=== PATIENT | female | born 1970 | race Caucasian/White ===

== ENCOUNTER → 2023-08-31 17:21 | Outpatient (REF) | payer BC, SELFPAY | LOC: WDC 17:21 | PROVIDERS: ATTENDING PHYSICIAN Family Medicine | DX: Z12.31 Encounter for screening mammogram for malignant neoplasm of breast (principal) | CPT/HCPCS: 77063; 77067 ==

== ENCOUNTER 2023-12-01 06:25 | Day surgery (SDC) | payer BC, SELFPAY ==
[2023-12-01 09:16] VITALS: BMI 44.0
[2023-12-01 09:18] VITALS: BMI 44.0
[2023-12-01 09:19] VITALS: BP 121/88
[2023-12-01 11:15] VITALS: BP 124/81
[2023-12-01 11:30] VITALS: BP 121/83
[2023-12-01 11:45] VITALS: BP 120/90
[2023-12-01 12:00] VITALS: BP 123/83
== END 2023-12-01 12:15 | disposition home or self-care (01) ==
LOC: GI 06:25
PROVIDERS: ATTENDING PHYSICIAN Internal Medicine
DX: D12.0 Benign neoplasm of cecum (principal); K57.30 Diverticulosis of large intestine without perforation or abscess without bleeding; K62.89 Other specified diseases of anus and rectum; N81.6 Rectocele; K64.4 Residual hemorrhoidal skin tags; R19.7 Diarrhea, unspecified; R15.2 Fecal urgency; K44.9 Diaphragmatic hernia without obstruction or gangrene; K31.7 Polyp of stomach and duodenum; K31.89 Other diseases of stomach and duodenum; R13.10 Dysphagia, unspecified
CPT/HCPCS: 45385; 45380; 43239; 88305; 88342

== ENCOUNTER → 2024-09-22 10:25 | Outpatient (REF) | payer BC, SELFPAY | LOC: WDC 10:25 | PROVIDERS: ATTENDING PHYSICIAN Family Medicine | DX: Z78.0 Asymptomatic menopausal state (principal); Z12.31 Encounter for screening mammogram for malignant neoplasm of breast | CPT/HCPCS: 77063; 77067; 77080 ==

== ENCOUNTER 2024-11-29 18:32 | Emergency (ER) | payer SELFPAY ==
[2024-11-29 18:43] VITALS: BP 132/92
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
[2024-11-29] MEDS: MOTRIN 600 MG PO (21:20)
[2024-11-29] MEDS: VALIUM INJECTION 5 MG IM (21:21)
== END 2024-11-29 22:46 | disposition home or self-care (01) ==
LOC: EMR 18:32
PROVIDERS: EMERGENCY PHYSICIAN Emergency Medicine; FAMILY PHYSICIAN Family Medicine
DX: S16.1XXA Strain of muscle, fascia and tendon at neck level, initial encounter (principal); M25.562 Pain in left knee; V43.53XA Car driver injured in collision with pick-up truck in traffic accident, initial encounter; J45.909 Unspecified asthma, uncomplicated; Z90.49 Acquired absence of other specified parts of digestive tract
CPT/HCPCS: 96372; 99284; 70450; 72125; 73000; 73030; 73564

== ENCOUNTER 2025-03-19 09:33 | Inpatient (IN) | payer OTHER, BC, SELFPAY ==
--- NOTE | 2025-02-26 15:16 | CM ---
Addendum entered by Daisha Bedolla RN 03/20/25 09:04:
Cm met with patient in room. Patient confirmed appointment with outpatient PT for 03/21.
PLAN: Home with outpatient PT
Original Note:
Demographics: confirmed
Living situation: lives with , two story home
Support Person Post Operatively:
History of
VN: No
SNF: No
Outpatient: [facility] appointment for 03/21
Has patient purchased required equipment: yes
PCP: Jessica
Pharmacy: [facility]
Post Operative Discharge Plan: Home with family, outpatient PT
[2025-03-09 11:14] LABS: Hematocrit 40.2 % (37.0-47.0); Hemoglobin 13.2 g/dL (12.0-16.0); Mean Corp Hgb Conc. 32.8 g/dL (33.0-37.0); Mean Corpuscular Volume 95.3 fL (81.0-99.0); Platelet Count 225 10^3/uL (130-400); Red Cell Dist. Width 12.5 % (11.5-14.5)
[2025-03-09 11:58] LABS: Glycohemoglobin (HgbA1c) 5.3 % (4.0-5.6)
[2025-03-09 12:25] LABS: ALT (SGPT) 20 U/L (0-35); AST (SGOT) 21 U/L (14-36); Albumin 4.7 g/dl (3.5-5.0); Alkaline Phosphatase 49 U/L (38-126); Blood Urea Nitrogen 23 mg/dl (7-17); Calcium 9.7 mg/dl (8.4-10.2); Carbon Dioxide 29 mmol/L (22-30); Chloride 103 mmol/L (98-107); Glucose 54 mg/dl (70-99); Potassium 4.2 mmol/L (3.5-5.1); Sodium 140 mmol/L (135-145); Total Protein 7.2 g/dl (6.3-8.2); eGFR > 60.00
[2025-03-12 13:32] VITALS: BMI 39.2
--- NOTE | 2025-03-13 10:19 | PTCARENOTE ---
Abnormal glucose 54 collected 03/09/25 reported to Jessica at Dr Ortiz office.
[2025-03-13 12:25] VITALS: BMI 39.2
--- NOTE | 2025-03-13 13:35 | PTCARENOTE ---
Patients 03/09 glucose 54- Nina Jean- PAC and Dr. Campbell notified- bedside glucose to be repeated day of surgery
[2025-03-19] VITALS (16 sets, daily range): BP systolic 101–130; BP diastolic 63–87; PULSE 95; BMI 39.2
[2025-03-19 09:47] LABS: Glucose - Point of Care 99 mg/dl (70-99)
[2025-03-19] MEDS: TYLENOL 650 MG PO ×3 (10:11→19:33)
[2025-03-19] MEDS: NORMOSOL-R/PLASMALYTE-A 1000 IV ×2 (10:11→17:02)
[2025-03-19] MEDS: CELEBREX 200 MG PO (10:11)
--- NOTE | 2025-03-19 12:04 | W.PN.UPDATE ---
Update Note
Progress Note Update
L knee OA s/p L TKA w/ Dr Ortiz 03/19/25
DVT prophylaxis - ASA, b/l venous foot pumps
HTN - + parameters - monitor BP
Exercise-induced asthma
Obstructive sleep apnea, compliant with CPAP (setting 10)
- Monitor O2
- IS
- Resume inhaler prn
- Resume CPAP HS
- Consider Decadron
GERD and Hiatal hernia - add PPI therapy
Ambulatory dysfunction with balance difficulties - on fall precautions
- Work w/ PT and OT as able
Obesity, BMI 39.1 - would benefit from Cefadroxil upon d/c
- Can resume Wegovy upon d/c
Hypercholesterolemia
Diverticulosis
Nephrolithiasis
Irritable bowel syndrome
Migraines
Multilevel degenerative disc disease
Chronic postnasal drip
Overactive bladder
Osteopenia
Depression
Anxiety
Recent hypoglycemia secondary to Wegovy, asymptomatic
[2025-03-19] MEDS: ROXICODONE 5 MG PO ×2 (15:49→17:29)
[2025-03-19] MEDS: PROTONIX 40 MG PO (17:02)
[2025-03-19] MEDS: ASPIRIN 325 MG PO (17:02)
--- NOTE | 2025-03-19 17:30 | PTCARENOTE ---
Pt arrived to [facility] s/p Left TKA. Pt 95% on RA. Left knee dressing with small sanguineous drainage. Pt voided with PT and sitting OOB in chair. Admission questions answered. Pt oriented to room and call moreno. Care ongoing.
[2025-03-19] MEDS: ANCEF 5 IV (18:10)
[2025-03-19] MEDS: BACTROBAN 2% OINTMENT 1 APPLIC NASAL (19:30)
[2025-03-19] MEDS: COLACE 100 MG PO (19:33)
[2025-03-19] MEDS: SENOKOT 17.2 MG PO (19:33)
[2025-03-19] MEDS: FLORASTOR 250 MG PO (19:33)
[2025-03-19] MEDS: LAMICTAL 25 MG PO (19:33)
[2025-03-19] MEDS: DITROPAN 5 MG PO (19:33)
[2025-03-19] MEDS: DILAUDID 0.5 MG IV (19:55)
[2025-03-19] MEDS: PAXIL 20 MG PO (22:06)
[2025-03-19] MEDS: ATIVAN 0.5 MG PO (22:06)
[2025-03-19] MEDS: CRESTOR 5 MG PO (22:06)
[2025-03-19] MEDS: DEPAKOTE ER (24 HR RELEASE) 500 MG PO (22:06)
[2025-03-19] MEDS: NEURONTIN 300 MG PO (22:06)
[2025-03-19] MEDS: TORADOL 10 MG IV (22:06)
[2025-03-19] MEDS: ROXICODONE 10 MG PO (22:27)
[2025-03-19] MEDS: SINGULAIR 10 MG PO (22:27)
[2025-03-20] MEDS: TYLENOL PO (00:25)
[2025-03-20] MEDS: ANCEF 5 IV (03:29)
[2025-03-20] MEDS: TYLENOL 650 MG PO ×3 (03:31→12:38)
[2025-03-20] MEDS: ROXICODONE 5 MG PO (05:32)
[2025-03-20 07:00] VITALS: BP 117/73
[2025-03-20] MEDS: ATIVAN 1 MG PO (07:51)
[2025-03-20] MEDS: LAMICTAL 25 MG PO (07:51)
[2025-03-20] MEDS: ASPIRIN 325 MG PO (07:51)
[2025-03-20] MEDS: PROTONIX 40 MG PO (07:51)
[2025-03-20] MEDS: SENOKOT 17.2 MG PO (07:51)
[2025-03-20] MEDS: COLACE 100 MG PO (07:51)
[2025-03-20] MEDS: CELEBREX 200 MG PO (07:51)
[2025-03-20] MEDS: DITROPAN 5 MG PO (07:52)
[2025-03-20] MEDS: BACTROBAN 2% OINTMENT 1 APPLIC NASAL (07:52)
[2025-03-20] MEDS: FLORASTOR 250 MG PO (07:52)
[2025-03-20 07:56] LABS: Glucose 112 mg/dl (70-99)
[2025-03-20] MEDS: NEURONTIN 300 MG PO (08:56)
[2025-03-20] MEDS: ROXICODONE 10 MG PO ×2 (08:56→13:09)
[2025-03-20] MEDS: LIDOCAINE 4% PATCH 2 PATCH TOPICAL (08:56)
--- NOTE | 2025-03-20 09:19 | W.PN.ORTHO ---
Today's Communication / Plan
-
Await PT and OT recs.
D/c later today if remaining clinically stable.
Assessment
.
Distal Motor Intact: Yes
Dressing:
Small areas of bleeding along incision.
Assessment:
L knee OA s/p L TKA w/ Dr Ortiz 03/19/25
DVT prophylaxis - ASA, b/l venous foot pumps
HTN - + parameters - BPs overall stable
Exercise-induced asthma
Obstructive sleep apnea, compliant with CPAP (setting 10)
- O2 stable on RA POD 1 w/ measures below
- IS
- Resumed inhaler prn
- Resumed CPAP HS
- Consider Decadron
GERD and Hiatal hernia - added PPI therapy
Ambulatory dysfunction with balance difficulties - on fall precautions
- Work w/ PT and OT as able
Obesity, BMI 39.1 - would benefit from Cefadroxil upon d/c
- Can resume Wegovy upon d/c
Recent hypoglycemia secondary to Wegovy, asymptomatic - glucose pre- and post-op stable
Hypercholesterolemia
Diverticulosis
Nephrolithiasis
Irritable bowel syndrome
Migraines
Multilevel degenerative disc disease
Chronic postnasal drip
Overactive bladder
Osteopenia
Depression
Anxiety
Plan
.
Surgery / Date: L TKA w/ Dr Ortiz 03/19/25
DVT Prophylaxis: Aspirin
Activity:
Out of bed.
PT/OT
Discharge Plan: Home w/ Outpatient PT
Subjective
.
.:
Patient examined resting in her chair this AM.
L knee pain an issue overnight. Pain meds adjusted accordingly.
Denies any other new significant complaints.
Eager for potential d/c today.
Vital Signs and Labs
.
Vital Signs and Labs:
Lab Results
03/09/25 09:44
03/20/25 06:41
Temp Pulse Resp BP Pulse Ox
98.5 F 71 20 117/73 96
03/20/25 07:00 03/20/25 07:52 03/20/25 07:00 03/20/25 07:52 03/20/25 07:00
Non-invasive Hgb result: 13.2
Physical Exam
-
HEENT: No pallor, cyanosis, or jaundice. Throat clear.
NECK: Supple. No JVD.
RESPIRATORY: Lungs clear to auscultation.
CVS: S1, S2 normal. RRR.�
ABDOMEN: Soft, non-tender. No distension. Obese.
EXTREMITIES: Expected post-surgical L knee edema. Strength equal, no calf pain with palpation/dorsiflexion. Calves soft.
FOREST FIRE LOOKOUT: AOx3. No focal deficits. 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
--- NOTE | 2025-03-20 09:31 | W.DS.TRANS ---
DC Summary - Linker Up
-
Discharge Instructions:
Discharge Diagnosis/Procedures L knee OA s/p L TKA w/ Dr Ortiz 03/19/25
Diet Regular
Additional Diets Adequate hydration, minimize opioids, and wear
TEDs stockings to prevent low blood pressure/
dizziness.
Activity As tolerated,With Walker
Driving Restrictions Not until seen by your Dr
Bathing Restrictions OK to Shower
Other Services PT
Wound Care Dressing to be removed 1 week post-surgery.
Remington to be removed at 2 week follow-up with
surgeon's office.
Instructions:
Stand-Alone Forms: Total Hip/Knee Replacement D/C
Changes to Home Medications: Yes
Discharge Medications:
DC Medications w/original date entered in [facility]
multivitamin with folic acid 400 mcg tablet (Tab-A-Julisa) 1 tab PO DAILY 01/21/10
lamotrigine 25 mg chewable dispersible tablet 25 mg PO BID 11/06/16
lorazepam 1 mg tablet 1 mg PO DAILY 11/06/16
omeprazole 40 mg capsule,delayed release 40 mg PO DAILY 12/04/18
azelastine 0.05 % eye drops 1 drp BOTH EYES DAILY 12/01/23
montelukast 10 mg tablet 10 mg PO HS 12/01/23
rosuvastatin 5 mg tablet 5 mg PO HS 12/01/23
Probiotic 1 cap PO QPM 03/08/25
albuterol sulfate 90 mcg/actuation aerosol inhaler 2 puff inhalation Q6HPRN PRN SOB 03/08/25
atogepant 60 mg tablet 60 mg PO HS 03/08/25
divalproex 250 mg tablet,extended release 24 hr 500 mg PO HS 03/08/25
fluticasone propionate 50 mcg/actuation nasal spray,suspension (Flonase Allergy Relief) 2 spray intranasal DAILY 03/08/25
lorazepam 1 mg tablet 0.5 mg PO HS 03/08/25
onabotulinumtoxinA 100 unit solution for injection (Botox) 100 unit intradermal [id number] 03/08/25
oxybutynin chloride 10 mg tablet,extended release 24 hr 10 mg PO DAILY 03/08/25
paroxetine HCl 20 mg tablet (Paxil) 20 mg PO HS 03/08/25
semaglutide (weight loss) 2.4 mg/0.75 mL subcutaneous pen injector (Wegovy) 2.4 mg SC SA 03/08/25
mupirocin 2 % topical ointment 1 applic intranasal BID #1 tube 03/09/25
cefadroxil 500 mg capsule 500 mg PO BID #14 caps 03/13/25
celecoxib 200 mg capsule (Celebrex) 200 mg PO DAILY #14 caps 03/13/25
gabapentin 300 mg capsule 300 mg PO HS neuropathic pain/sleep #10 caps 03/13/25
oxycodone 5 mg tablet 5 - 10 mg (1 - 2 x 5 mg) PO Q6H PRN moderate-severe pain #30 tabs 03/13/25
acetaminophen 500 mg tablet (Acetaminophen Extra Strength) 1,000 mg (2 x 500 mg) PO Q6H #60 tabs 03/20/25
aspirin 325 mg tablet 325 mg PO DAILY #30 tabs 03/20/25
docusate sodium 100 mg capsule 100 mg PO BID #30 caps 03/20/25
lidocaine 4 % topical patch 2 patch topical DAILY #30 ea 03/20/25
lisinopril 10 mg tablet 10 mg PO DAILY #1 tab 03/20/25
ondansetron 4 mg disintegrating tablet 8 mg (2 x 4 mg) PO Q8HPRN PRN nausea and vomiting #1 tab 03/20/25
polyethylene glycol 3350 17 gram oral powder packet (Miralax) 17 g PO DAILY PRN Constipation #30 ea 03/20/25
rizatriptan 10 mg disintegrating tablet 10 mg PO DAILYPRN PRN Migraine #1 tab 03/20/25
sennosides 8.6 mg tablet (Coreen-eitan) 17.2 mg (2 x 8.6 mg) PO BID #30 tabs 03/20/25
Home Medication Changes
cefadroxil 500 mg capsule 500 mg PO BID #14 caps 03/13/25
celecoxib 200 mg capsule (Celebrex) 200 mg PO DAILY #14 caps 03/13/25
gabapentin 300 mg capsule 300 mg PO HS neuropathic pain/sleep #10 caps 03/13/25
oxycodone 5 mg tablet 5 - 10 mg (1 - 2 x 5 mg) PO Q6H PRN moderate-severe pain #30 tabs 03/13/25
acetaminophen 500 mg tablet (Acetaminophen Extra Strength) 1,000 mg (2 x 500 mg) PO Q6H #60 tabs 03/20/25
aspirin 325 mg tablet 325 mg PO DAILY #30 tabs 03/20/25
docusate sodium 100 mg capsule 100 mg PO BID #30 caps 03/20/25
lidocaine 4 % topical patch 2 patch topical DAILY #30 ea 03/20/25
polyethylene glycol 3350 17 gram oral powder packet (Miralax) 17 g PO DAILY PRN Constipation #30 ea 03/20/25
sennosides 8.6 mg tablet (Coreen-eitan) 17.2 mg (2 x 8.6 mg) PO BID #30 tabs 03/20/25
Pending Results: No
[2025-03-20] MEDS: MAXALT MLT (ORALLY DISINTEGRATING) 10 MG PO (09:53)
[2025-03-20 10:51] VITALS: BP 117/75; PULSE 89
[2025-03-20 11:42] VITALS: BP 128/84; PULSE 88; O2SAT 92
[2025-03-20 13:20] VITALS: BP 130/87
== END 2025-03-20 15:05 | disposition home or self-care (01) | DRG 470 ==
LOC: 2 SOUTH 09:33
PROVIDERS: Anesthesiology; ADMITTING PHYSICIAN Specialist; FAMILY PHYSICIAN Family Medicine
PROC: 0SRC0J9 Replacement of Right Knee Joint with Synthetic Substitute, Cemented, Open Approach (ICD-10-PCS; 2025-03-19)
DX: M17.12 Unilateral primary osteoarthritis, left knee (principal); I10 Essential (primary) hypertension; E78.00 Pure hypercholesterolemia, unspecified; J45.990 Exercise induced bronchospasm; G47.33 Obstructive sleep apnea (adult) (pediatric); K21.9 Gastro-esophageal reflux disease without esophagitis; K44.9 Diaphragmatic hernia without obstruction or gangrene; K57.30 Diverticulosis of large intestine without perforation or abscess without bleeding; K58.9 Irritable bowel syndrome, unspecified; G43.909 Migraine, unspecified, not intractable, without status migrainosus; R09.82 Postnasal drip; N32.81 Overactive bladder; M85.80 Other specified disorders of bone density and structure, unspecified site; F32.A Depression, unspecified; E66.9 Obesity, unspecified; F41.9 Anxiety disorder, unspecified; Z68.39 Body mass index [BMI] 39.0-39.9, adult; Z87.442 Personal history of urinary calculi; Z79.85 Long-term (current) use of injectable non-insulin antidiabetic drugs; Z79.51 Long term (current) use of inhaled steroids
CPT/HCPCS: 36415; 73560; 80053; 82947; 82962; 83036; 85027; 87070; 97110; 97116; 97162; 97167; 97530; C1713; C1776